=== PATIENT | male | born 1980 | race Caucasian/White ===

== ENCOUNTER → 2018-01-25 | Outpatient (CLI) | payer OTHER | LOC: COL.RAD 13:19 | DX: N50.82 Scrotal pain (principal) ==

== ENCOUNTER → 2020-05-06 | Outpatient (CLI) | payer OTHER ==
[~2020-05-06] MED LIST: PRILOSEC 20MG20 MG PO
== END ==
LOC: COL.RAD 12:34
DX: R42 Dizziness and giddiness (principal); R51.9 Headache, unspecified

== ENCOUNTER → 2020-05-20 | Outpatient (CLI) | payer OTHER | LOC: COL.RAD 09:28 | DX: K76.0 Fatty (change of) liver, not elsewhere classified (principal); R07.9 Chest pain, unspecified; R06.00 Dyspnea, unspecified | CPT/HCPCS: Q9967 ==